=== PATIENT | male | born 1945 | race Caucasian/White ===

== ENCOUNTER 2018-11-26 03:39 | Inpatient (IN) | payer MEDICARE, OTHER ==
[2018-11-26] MEDS ORDERED: Morphine 4 MG/ML VIAL SLOW IVP PRN ×2 (05:22→05:49)
[2018-11-26] MEDS ORDERED: Ondansetron ODT 4 MG TAB SL PRN (05:23)
[2018-11-26] MEDS ORDERED: Ondansetron PF 4 MG/2 ML Vial IVP PRN (05:23)
[2018-11-26 05:24] VITALS: BMI 32.2
[2018-11-26] MEDS ORDERED: Dextrose 5 % And 0.9 % NaCl 1,000 ML IV SCH (05:30)
[2018-11-26] MEDS ORDERED: Lactated Ringer's 1,000 ML IV SCH ×2 (05:45→12:00)
[2018-11-26] MEDS ORDERED: HumaLOG 300 UNITS/3 ML VIAL SC PRN (06:13)
[2018-11-26] MEDS ORDERED: Dextrose 5% in Water 1,000 ML IV PRN (06:13)
[2018-11-26] MEDS ORDERED: hydrALAZINE 20 MG/ML VIAL SLOW IVP PRN (06:14)
--- NOTE | 2018-11-26 07:16 | HP ---
PRIMARY CARE PHYSICIAN: CODE STATUS: Full code. TIME OF EVALUATION: 6 a.m. CHIEF COMPLAINT: Abdominal pain. HISTORY OF PRESENT ILLNESS: This is a 73-year-old male patient with past medical history of diabetes, hypertension, and GERD, came to the hospital after having severe abdominal pain that started 2 days ago and radiating to the back with no clear triggers, no alleviating factors, associated with nausea and vomiting. It looks that the patient had some weight loss in the past few weeks. REVIEW OF SYSTEMS: CONSTITUTIONAL: The patient had no fever or chills. The patient has generalized weakness. RESPIRATORY: No cough, sputum production, or shortness of breath. CARDIOVASCULAR: No chest pain or palpitation. GASTROINTESTINAL: The patient has nausea and vomiting and severe abdominal pain radiating to the back. PROJECT SUPERINTENDENT: No dizziness, headache, or feeling lightheaded. GENITOURINARY: No burning on urination. EXTREMITIES: No leg swelling. All other systems were reviewed and negative except for the findings mentioned above. PAST MEDICAL HISTORY: As mentioned in the HPI. PAST SURGICAL HISTORY: The patient has cataracts with [id number] amputation, right knee replacement in 2012. FAMILY HISTORY: The patient has 2 sisters with breast cancer. PHYSICAL EXAMINATION: VITAL SIGNS: Blood pressure 191/81 with heart rate 84, respiratory rate was 20, temperature 97.8, pulse ox 94 %, weight 107 kg. GENERAL APPEARANCE: The patient is alert and oriented, in no acute distress. HEENT: Eyes, normal conjunctivae. Moist oral mucosa. Anicteric. No JVD. RESPIRATORY: Bilateral air entry. No rales. No wheezes. Symmetric expansion. CARDIOVASCULAR: Normal rate, regular rhythm. No murmurs. No gallop. No edema. ABDOMEN: Soft. Normal bowel sounds. The patient has abdominal tenderness noticed in the epigastric area. MUSCULOSKELETAL: Baseline range of motion and strength. No tenderness. SKIN: Warm and intact. No pallor. No rash. No redness. EXTREMITIES: Peripheral pulses are present. Capillary refill seems to intact. NEUROLOGIC: No evidence of any new focal weakness. Cranial nerves seems to be intact. PSYCH: The patient is in good mood. No anxiety. Optimal judgment. LABORATORY DATA: EKG was reviewed. The patient has atrial fibrillation with RBBB the labs were reviewed. The patient has white count 13.8, hemoglobin 13.7, hematocrit 42. BMP; the patient has BUN of 32, creatinine 2.0. Bilirubin was 2.4, AST 543, ALT 328, bilirubin direct 1.9. Urinalysis was negative. Lipase was 69,528. Amylase 3100. Blood cultures x2 were done. Magnesium 1.9. Beta-natriuretic peptide 198. Partial thromboplastin time 21, PT 10.9, troponin less than 0.017, lactic acid 1.7. Ultrasound of the abdomen was done, it was negative. The only finding was hepatic steatosis. Common bile duct was 4.[address] abdomen was done and showed acute pancreatitis. ASSESSMENT AND PLAN: The patient will be placed in the hospital with following medical problems. 1. Acute pancreatitis. Lipase was very elevated, also LFTs are high. Common bile duct is normal. GI has been consulted. We will follow recommendations. We will continue with hydration and pain management. The patient seems to be stable at this point. Symptoms are under control. 2. Hypertensive urgency. The patient presented with systolic blood pressure of 191, could be secondary to pain, symptoms are under control. Blood pressure is in control now. Might need some blood pressure medications p.r.n. for optimal control. 3. Leukocytosis, white count 13.8. This is likely secondary to pancreatitis. There is no bandemia. No evidence of sepsis at this point. 4. History of diabetes. We will place the patient on sliding scale for optimal control. 5. Hyperlipidemia. Reconcile home medications. Low-cholesterol diet is advised. 6. Deep venous thrombosis prophylaxis. Job ID: [id number]
[2018-11-26] MEDS: Enoxaparin Sodium 40 MG/0.4 ML SYRINGE SC SCH (09:06)
[2018-11-26] MEDS: Dextrose 50% Abboject 50 ML SYRINGE SLOW IVP PRN ×5 (11:07→21:04)
--- NOTE | 2018-11-26 11:47 | CON ---
DATE OF CONSULTATION: HISTORY OF PRESENT ILLNESS: This is a 73-year-old obese gentleman, who presented to [facility] with severe abdominal pain of about 2 days duration, eventually associated with some nausea and vomiting. A CT of abdomen showed evidence of peripancreatic inflammation consistent with acute pancreatitis. His lipase was 4421, he is in the MICU, reason for consultation. Nonsmoker. Chews recent tobacco. Drinks socially. He was evaluated by a stave grader here locally for cough, which was felt to be secondary to YAW. He does snore. It is unclear whether he has witnessed apnea. PAST MEDICAL HISTORY: Hypertension, diabetes, BPH, high cholesterol, and reflux. CHRONIC MEDICATION: 1. Amlodipine 5. 2. Actos 30. 3. Glipizide 5. 4. Metformin 1000 b.i.d. 5. Flomax 0.4. 6. Losartan . 7. Omeprazole 10. 8. Simvastatin 40. PAST MEDICAL HISTORY: Diabetes; hypertension; reflux; hyperlipidemia; chronic cough, improved. PAST SURGICAL HISTORY: Cataract, left BKA, shoulder trauma, right knee replacement. ALLERGIES: SULFA. SOCIAL AND FAMILY HISTORY: REVIEW OF SYSTEMS: Otherwise, 10-point negative. PHYSICAL EXAMINATION: GENERAL: In no distress. VITAL SIGNS: Temperature 98.9, saturations are 97, blood pressure 139/73, respiratory rate 18, and pulse 80. CHEST: Decreased breath sounds. No wheezing. CARDIAC: Normal S1 and S2. No gallops. ABDOMEN: No masses. LABORATORY DATA: LDH is 435, lipase 4421. In addition, a chest x-ray was done, which did not show any acute infiltrates. His additional lab was otherwise unremarkable. IMPRESSION: 1. Acute pancreatitis. 2. Diabetes. 3. Hypertension. 4. Probable sleep apnea, morbid obesity. PLAN: Await input from GI. Pulmonary will follow while in the MICU. Discussed with his . He may benefit from an outpatient sleep study. Continue PT supportive care. We will follow. Consultation note, 70 minutes, 50% direct patient care. Job ID: [id number]
[2018-11-26] MEDS ORDERED: Dextrose 5%-Lactated Ringers 1,000 ML IV SCH ×3 (12:00→16:00)
[2018-11-26 14:37] LABS: #Lymphocytes 0.5 thou/uL (1.20-3.40); #Monocytes 0.6 thou/uL (0.11-0.59); #Neutrophils 9.7 thou/uL (1.40-6.50); %Eosinophils 0.1 % (0.0-10.0); %Lymphocytes 4.5 % (21.0-51.0); %Monocytes 5.4 % (0.0-10.0); Hemoglobin 12.3 g/dL (14.0-18.0); Mean Corpuscular Hemoglobin 32.3 pg (27.0-31.0); Mean Corpuscular Volume 97.9 fL (78.0-98.0); Mean Platelet Volume 9.5 fL (7.4-10.4); Platelet Count 146 thou/uL (130-400); RBC Distribution Width 12.1 % (11.5-14.5); White Blood Cell (WBC) Count 10.7 thou/uL (4.8-10.8)
--- NOTE | 2018-11-26 14:47 | CON ---
DATE OF CONSULTATION: 11/26/2018 CHIEF COMPLAINT: Abdominal pain. HISTORY OF PRESENT ILLNESS: Mr. Roa is a 73-year-old man, who had onset of aching epigastric pain that radiates through to his back on Monday night. The pain at that point was postprandial and relatively mild and lasted for minutes to a couple of hours and improved with Rolaids. The next day, Monday, he had recurrence of the pain and again, he took Rolaids and the pain improved and then returned again later in the day after eating. He took some Mylanta with some improvement. The next morning, yesterday morning, his pain was much better. He went to [place] and then in the afternoon again, the pain started again after eating and at this time, it was more severe. He drinks Mylanta and went to sleep on the couch and then woke up a few hours later with much worse pain and ultimately, he went on to the emergency room for further care. He vomited once at home and then again in the emergency room. He has had no hematemesis. No blood in the stool. No diarrhea or constipation. He has gained weight recently. He had an EGD and colonoscopy I believe at [facility] around 2 to [address] Tinajero. The family reports he had some changes of acid reflux, but otherwise the scopes were okay. He also had an ultrasound at that time that was reportedly unremarkable. He does get periodic blood tests done and does not recall having been told his liver tests were elevated before. He only drinks 1 or 2 beers once every month or 6 weeks. He has been treated for hypertriglyceridemia. PAST MEDICAL HISTORY: Hypertriglyceridemia, diabetes mellitus, gastroesophageal reflux disease, and hypertension. PAST SURGICAL HISTORY: Cataract surgery, left BKA, right knee replacement. He has had no prior abdominal surgeries. He has had a recent EGD and a colonoscopy. FAMILY HISTORY: Negative for GI malignancy or liver disease. SOCIAL HISTORY: Maybe 1 or 2 beers once every month to a month and a half. No smoking. No drugs. ALLERGIES: SULFA. MEDICATIONS: Prior to admission include; 1. Omeprazole 20 mg daily. 2. Metformin. 3. Pioglitazone. 4. Vitamin D. 5. Losartan. 6. Simvastatin. 7. Fenofibrate. 8. B12. 9. Tamsulosin. 10. Amlodipine. 11. Cetirizine. 12. Glipizide. REVIEW OF SYSTEMS: Negative x10 systems reviewed except as stated in the history of present illness. PHYSICAL EXAMINATION: VITAL SIGNS: Temperature is 97.8, blood pressure 124/69, and pulse 71. GENERAL: He is in no acute distress. He is alert and oriented x3. HEENT: Eyes have slight scleral icterus. Oropharynx is clear without lesions. NECK: No cervical or supraclavicular lymphadenopathy. LUNGS: Clear to auscultation bilaterally. HEART: Regular rate and rhythm without murmur. ABDOMEN: Soft. Minimal tenderness now to palpation without guarding. Bowel sounds are present. EXTREMITIES: No lower extremity edema. He does report that his pain is resolved at this time. DIAGNOSTIC DATA: Labs from the outside emergency room include white blood cell count 13.8, hemoglobin 13.7. Creatinine 2.07, bilirubin 2.4, AST 543, ALT 328, and alkaline phosphatase 101. He had ultrasound of the abdomen in the outside ER that showed fatty liver and no gallstones and a common bile duct of 4.[address] He [address] a [address] scan of the abdomen and pelvis as well that showed peripancreatic inflammatory changes and fatty infiltration of the liver without biliary tree dilatation. Labs today, lipase is 4421, triglycerides 55. His lipase at the outside ER was in the 60,000 range. However, I do not have a listed upper limit of normal for that lab. IMPRESSION: 1. Acute gallstone pancreatitis. He presents with significantly elevated liver tests with a bilirubin of 2.4. Ultrasound shows no stones in the gallbladder. His common bile duct is not dilated. He has no prior history of elevated liver tests. However, he does have fatty liver by ultrasound. He has a history of hypertriglyceridemia and is on simvastatin and fenofibrate. However, his triglycerides with labs drawn this morning were only 55. His lipase is trending down. He does have secondary organ dysfunction secondary to the pancreatitis with an elevated creatinine of 2. 2. Acute renal failure. 3. Fatty liver disease. 4. Diabetes mellitus. RECOMMENDATIONS: 1. IV rehydration with lactated Ringer's. 2. Follow trend of the liver tests. 3. MRCP today. 4. If the MRCP suggest choledocholithiasis or the liver tests continue to increase, then he will likely require ERCP. If the liver tests and MRI do not suggest persistent choledocholithiasis, then cholecystectomy will be indicated as a next step. There is no history of significant alcohol use to indicate alternative etiology. He has no evidence of chronic liver disease prior to this based on history to indicate that he has acute pancreatitis and chronic liver disease that is just decompensating. This would be a much less likely scenario at this point. Job ID: [id number]
[2018-11-26 14:53] LABS: ALT (SGPT) 279 U/L (8-55); AST (SGOT) 252 U/L (5-34); Albumin 3.7 g/dL (3.4-4.8); Alkaline Phosphatase 85 U/L (40-150); Anion Gap 13 mmol/L (10-20); BUN (Urea Nitrogen) 34 mg/dL (8.4-25.7); Bilirubin, Total 3.7 mg/dL (0.2-1.2); Calc. Creatinine Clearance 50 mL/min (70-130); Calcium 9.2 mg/dL (7.8-10.44); Carbon Dioxide 20 mmol/L (23-31); Chloride 107 mmol/L (98-107); Estimated GFR-MDRD 32; Globulin 3.3 g/dL (2.4-3.5); Potassium 4.1 mmol/L (3.5-5.1); Sodium 136 mmol/L (136-145)
[2018-11-26 14:55] LABS: Glucose 54 mg/dL (83-110)
--- NOTE | 2018-11-26 15:53 | PDOC.EVN ---
Event Note - Event Note Event Note: Patient admitted earlier this AM with pancreatitis. Seen and examined around noon. Abdominal pain improved, still a bit sore. No N/V. Blood sugars dropped this AM and NPO so starting fluids with dextrose. GI consult pending.
[2018-11-26] MEDS: Dextrose 10% in Water 1,000 ML IV SCH (17:50)
--- NOTE | 2018-11-26 19:26 | MRI ---
MRI ABDOMEN WITHOUT CONTRAST: Date: 11/26/18 HISTORY: Pancreatitis. FINDINGS: The liver demonstrates significant loss on the [id number] images consistent with diffuse fatty infi ltration. No intra or extrahepatic biliary ductal dilatation is seen. No pancreatic ductal dilatation is identified. There are probable tiny calculi in the gallbladder. No calculi seen in the common nedra e duct. There is a small amount of fluid in the anterior peroneal space. No abnormally loculated flui d collections are seen to suggest pseudocyst formation. There are cysts in the right kidney, largest measuring 17 mm. The spleen, adrenal glands, and left ki dney are normal. A small duodenal diverticulum is seen arising from the second portion of the duodenu m. There is suggestion of a mass at the pyloric antrum. No aneurysmal dilatation of the abdominal aorta seen. There are degenerative changes in the spine. No lymphadenopathy or ascites identified. IMPRESSION: 1. Fatty liver. 2. Probable cholelithiasis. 3. No evidence of choledocholithiasis or biliary obstruction. 4. Findings consistent with pancreatitis. 5. Right renal cysts. 6. Small duodenal diverticulum. 7. Probable mass in the pyloric antrum. Endoscopy would be helpful. POS: [facility]
[2018-11-27] MEDS: Dextrose 50% Abboject 50 ML SYRINGE SLOW IVP PRN ×4 (00:12→09:15)
[2018-11-27] MEDS: Acetaminophen 325 MG TAB PO PRN ×2 (03:59→20:04)
[2018-11-27 04:15] LABS: #Lymphocytes 0.9 thou/uL (1.20-3.40); #Monocytes 0.7 thou/uL (0.11-0.59); #Neutrophils 8.9 thou/uL (1.40-6.50); %Basophils 0.2 % (0.0-1.0); %Eosinophils 0.2 % (0.0-10.0); %Lymphocytes 8.3 % (21.0-51.0); %Monocytes 6.6 % (0.0-10.0); %Neutrophils 84.6 % (42.0-75.0); Hemoglobin 11.9 g/dL (14.0-18.0); Mean Corpuscular HGB CONC 32.7 g/dL (32.0-36.0); Mean Corpuscular Hemoglobin 32.2 pg (27.0-31.0); Mean Corpuscular Volume 98.4 fL (78.0-98.0); Mean Platelet Volume 9.9 fL (7.4-10.4); Platelet Count 156 thou/uL (130-400); RBC Distribution Width 12.3 % (11.5-14.5); Red Blood Cell (RBC) Count 3.68 mill/uL (4.70-6.10); White Blood Cell (WBC) Count 10.5 thou/uL (4.8-10.8)
[2018-11-27 04:36] LABS: Anion Gap 13 mmol/L (10-20); BUN (Urea Nitrogen) 27 mg/dL (8.4-25.7); Calc. Creatinine Clearance 56 mL/min (70-130); Calcium 9.3 mg/dL (7.8-10.44); Carbon Dioxide 17 mmol/L (23-31); Chloride 106 mmol/L (98-107); Estimated GFR-MDRD 36; Potassium 3.6 mmol/L (3.5-5.1); Sodium 132 mmol/L (136-145)
[2018-11-27 04:40] LABS: Glucose 40 mg/dL (83-110)
[2018-11-27] MEDS: Dextrose 10% in Water 1,000 ML IV SCH (06:05)
--- NOTE | 2018-11-27 09:06 | RAD ---
CHEST 1 VIEW: HISTORY: Cough. COMPARISON: None. FINDINGS: Atherosclerosis of the aorta. Diminished lung volumes. Pleural and parenchymal changes of the lung bases. No pneumothorax. IMPRESSION: 1. Atherosclerosis. 2. Diminished lung volumes, likely due to poor inspiratory effort. 3. Patchy interstitial opacities in the lung bases likely representing atelectasis. Small bilateral effusions may be present. POS: [facility]
--- NOTE | 2018-11-27 09:20 | PRG ---
DATE OF SERVICE: 11/27/2018 SUBJECTIVE: This morning, awake, alert, and responsive, in no distress. Having severe hypoglycemic episodes, probably from the glipizide. He was taking 10 mg twice a day. OBJECTIVE: VITAL SIGNS: His temperature 98, blood pressure 140/71, saturations are 100% on room air, respiratory rate 18. CHEST: Decreased breath sounds. No wheezing. CARDIAC: Normal S1, S2. No gallops. ABDOMEN: No masses. IMPRESSION: 1. Severe pancreatitis. 2.hypoglycemic. 3. Diabetes. 4. Renal failure. 5. Small pleural effusion. 6. Left foot imbalance. 7. Gallstones. PLAN: Await input from GI. Hopefully, we can start him on a liquid diet. I agree with D10. Probably needs intramuscular glucagon 1 dose. We will follow. Job ID: [id number] MTDD
[2018-11-27] MEDS: Enoxaparin Sodium 40 MG/0.4 ML SYRINGE SC SCH (09:23)
--- NOTE | 2018-11-27 09:58 | PDOC.PN ---
- Subjective Encounter Start Date: 11/27/18 Encounter Start Time: 11:45 Subjective: Patient cold this AM. Blood sugar keeps dropping. Having CVL placed -: currently to run D20W. Abdominal pain resolved, just a little sore, and -: feels hungry. - Objective Resuscitation Status - Order Detail: 11/26/18 05:48 Resuscitation Status Routine Resuscitation Status: FULL: Full Resuscitation MAR Reviewed: Yes Vital Signs & Weight: Vital Signs (12 hours) Temp 11/27/18 07:16 98.0 F 11/27/18 03:55 100.3 F H 11/27/18 00:00 101.8 F H Weight Weight 244 lb 6.4 oz Most Recent Monitor Data Heart Rate from ECG 52 NIBP 143/71 NIBP BP-Mean 95 Respiration from ECG 17 SpO2 99 I&O: 11/26/18 11/27/18 11/28/18 06:59 06:59 06:59 Intake Total 450 3190 Output Total 210 1710 Balance 240 1480 Result Diagrams: 11/27/18 03:46 11/27/18 03:46 Additional Labs: Accuchecks 11/27/18 11/27/18 11/27/18 08:54 06:56 05:35 POC Glucose 45 L* 141 H 50 L* 11/27/18 11/27/18 11/26/18 04:00 01:58 23:58 POC Glucose 43 L* 80 45 L* 11/26/18 11/26/18 11/26/18 21:56 20:52 19:36 POC Glucose 96 41 L* 116 H 11/26/18 11/26/18 11/26/18 19:17 17:59 17:31 POC Glucose 43 L* 103 45 L* 11/26/18 11/26/18 11/26/18 15:35 14:59 11:41 POC Glucose 106 42 L* 119 H 11/26/18 11/26/18 11:04 06:52 POC Glucose 46 L* 96 Phys Exam - Physical Examination Constitutional: NAD HEENT: moist MMs Respiratory: no wheezing, no rales, no rhonchi Cardiovascular: RRR, no significant murmur Gastrointestinal: soft, no distention, positive bowel sounds mild TTP IVIS Neurological: non-focal Psychiatric: normal affect, A&O x 3 Dx/Plan (1) Acute pancreatitis Code(s): K85.90 - ACUTE PANCREATITIS WITHOUT NECROSIS OR INFECTION, UNSP Status: Acute Qualifiers: Pancreatitis type: biliary Comment: likely gallstone induced vs. glipizide, no obstruction on MRCP though possibly pyloric mass, Dr. Mckeon following (2) Hypoglycemia Code(s): E16.2 - HYPOGLYCEMIA, UNSPECIFIED Status: Acute Comment: Likely due to acute illness, almost out of D50 amps, will need to place CVL to run D20W. No known glipizide overdose, but will try Octreotide. ?Sepsis as source? (3) Acute renal failure (ARF) Status: Acute Comment: improving with IV fluids (4) Diabetes mellitus type 2 in obese Code(s): E11.69 - TYPE 2 DIABETES MELLITUS WITH OTHER SPECIFIED COMPLICATION; E66.9 - OBESITY, UNSPECIFIED Status: Chronic (5) HTN (hypertension) Code(s): I10 - ESSENTIAL (PRIMARY) HYPERTENSION Status: Chronic (6) Hyperlipidemia Code(s): E78.5 - HYPERLIPIDEMIA, UNSPECIFIED Status: Chronic Comment: controlled (7) Fatty liver disease, nonalcoholic Status: Chronic - Plan cont current plan of care, PT/OT, DVT proph w/lovenox Case discussed with Dr. Mckeon. Symptomatically better but LFTs worse, -: persistent severe hypoglycemia, concern for underlying sepsis/biliary -: infection. Blood and urine cultures ordered and Rocephin started. * . - Discharge Day Encounter end time: 12:00
[2018-11-27 10:05] LABS: ALT (SGPT) 218 U/L (8-55); AST (SGOT) 151 U/L (5-34); Albumin 3.7 g/dL (3.4-4.8); Alkaline Phosphatase 97 U/L (40-150); Bilirubin, Direct 3.7 mg/dL (0.1-0.3); Bilirubin, Total 4.5 mg/dL (0.2-1.2); Protein, Total 7.2 g/dL (5.8-8.1)
[2018-11-27 10:25] LABS: INR-International Normal Ratio 1.2; Prothrombin Time 15.5 SEC (12.0-14.7)
[2018-11-27] MEDS ORDERED: Octreotide Acetate 50 MCG/ML AMP SC SCH (12:00)
--- NOTE | 2018-11-27 12:08 | PDOC.EVN ---
Event Note - Event Note Event Note: Called for CVC placement d/t need for d20 2/2 recurrent hypoglycemia. Obtained written and verbal consent from patient and daughter/. Sterile technique observed. CVC placed using seldinger technique on second attempt using ultrasound guidance. Wire visualized in vein prior to dilation. Line sutured in place. + lung sliding on right after placement. CXR pending. EBL [address] Amaya. Consider trial of octreotide if there is a component of sulfonylurea toxicity. Formal note to follow. I was present for the entirety of the procedure.
[2018-11-27] MEDS: Sterile Water Injection 714 ML in Dextrose 70% in Water 286 ML IV SCH ×2 (12:16→23:23)
--- NOTE | 2018-11-27 12:37 | RAD ---
AP view chest. HISTORY: Central line placement. AP view chest obtained on 11/27/2018. Comparison made to previous exam from 11/27/2018. There is been placement of a right jugular central line distal tip overlying the SVC. Mild cardiomegaly seen. Areas of patchy density seen in both lung bases compatible with bibasilar atelectasis. No evidence of effusion seen. IMPRESSION: No evidence of postprocedure hematoma or pneumothorax.
--- NOTE | 2018-11-27 12:47 | PDOC.CNTRL ---
Central Line Procedure Note - Procedure Date: 11/27/18 Time: 11:55 - Description Procedure in Details: INDICATION: Persistent hypoglycemia requiring D20 PROCEDURE SNAILER: Dinesh Silva (attending) ATTENDING PHYSICIAN: Dr. Koo In Attendance CONSENT: Consent was obtained from patient prior to the procedure. Indications, risks, and benefits were explained at length. PROCEDURE SUMMARY: A time out was performed. My hands were washed immediately prior to the procedure. I wore a surgical cap, mask with protective eyewear, full gown and sterile gloves throughout the procedure. The patient was placed in Trendelenburg position. RIGHT neck/chest region was prepped using chlorhexidine scrub and draped in sterile fashion using a full drape and sterile probe cover employed. The medial and lateral heads of the sternocleidomastoid muscle were identified as was the carotid pulse. The Internal Jugular vein was identified using the ultrasound. Anesthesia was achieved over the vein using 1% lidocaine. Using real-time out of plane guidance, the introducer needle was inserted into the Internal Jugular vein under direct ultrasound visualization. Venous blood was withdrawn. The syringe was removed and a guidewire was advanced into the introducer needle. The guidewire was visualized in the Internal Jugular Vein by ultrasound. A small incision was made at the skin surface with a scalpel and the introducer needle was exchanged for a dilator over the guidewire. After appropriate dilation was obtained, the dilator was exchanged over the wire for a triple lumen central venous catheter. The wire was removed and the catheter was sutured in place at 15 cm. A biopatch was placed over the catheter at the insertion site, catheter sutured in place and tegeterm layed over top. The patient tolerated the procedure without any hemodynamic compromise. At time of procedure completion, all ports aspirated and flushed properly. Post-procedure chest x-ray is pending at this time. Ultrasound verified lung sliding. Estimated blood loss is 2ml. Addendum - Attending - Attending Attestation Date/Time: 11/27/18 1325 Present and gowned/glove for the procedure.
[2018-11-27] MEDS ORDERED: cefTRIAXone Sodium 2,000 MG in Syringe 0 ML IVPB SCH (14:15)
--- NOTE | 2018-11-27 14:43 | PRG ---
DATE OF SERVICE: 11/27/2018 SUBJECTIVE: Mr. Roa has chills this afternoon. He had a central line in place. His blood pressure has been running higher. He has no abdominal pain and complains of hunger and wants eat. OBJECTIVE: VITAL SIGNS: Temperature midnight last night 101.8, current temperature 98.2, pulse 71, blood pressure this afternoon was 146/63. He did have a higher blood pressure measured this afternoon. However, this is when he was having chills and his muscles were tense. This measured at 183/112. GENERAL: He is awake and alert and oriented x3. HEENT: His eyes have scleral icterus. He is jaundiced. His oropharynx is clear without lesions. NECK: No cervical or supraclavicular lymphadenopathy. LUNGS: Clear to auscultation bilaterally. HEART: Regular rate and rhythm without murmur. ABDOMEN: Soft, nontender, nondistended. Bowel sounds are present. EXTREMITIES: No lower extremity edema. LABORATORY DATA: His blood glucose has been running repeatedly down to the 40s. Bilirubin today bumped up to 4.5, AST 151, ALT 218, alkaline phosphatase 97, and lipase 1312. IMPRESSION: 1. Acute severe pancreatitis with acute renal failure with creatinine elevated at 2.06 yesterday, improved somewhat to 1.83 today. He is completely pain free and asking for food. His blood sugars are running low, likely related to his diabetes medicines still on board despite no oral intake for the last couple of days. The cause of the acute pancreatitis is suspected to be biliary. His pain is resolved and his liver tests are increasing. MRCP shows suspected stones in the gallbladder. However, there is no evidence of choledocholithiasis and the bile ducts are not dilated. We will hold off ERCP at this point. 2. Abnormal liver function test. He has more of a hepatocellular injury pattern rather than cholestatic pattern to his liver tests. Again, question of choledocholithiasis is raised versus some other cause of this acute elevation of his liver tests. Given the concomitant pancreatitis, choledocholithiasis would make the most sense, however, again the MRI shows no evidence of choledocholithiasis, no bile duct dilation and his alkaline phosphatase is normal. Medication side effects or sepsis could be contributing to this as well. 3. Chills this afternoon and fevers last night. His white blood cell count is normal. We will send blood cultures and urine culture now. RECOMMENDATIONS: 1. Culture of the blood and urine. 2. We will initiate General Surgery consultation. He does have gallstones in the gallbladder by MRI and acute pancreatitis with elevated liver tests. He will likely ultimately require cholecystectomy. Intraoperative cholangiogram could be performed at the same time. 3. We will need to continue to follow the trend of the liver tests. 4. Await results of the blood and urine cultures. Job ID: [id number]
[2018-11-27] MEDS: cefTRIAXone\\ROCEPHIN 2 GM in Sodium Chloride 0.9% 100 ML IVPB SCH (15:23)
[2018-11-27] MEDS: Octreotide Acetate 100 MCG/ML VIAL SC SCH ×2 (17:38→23:23)
[2018-11-28] MEDS: Octreotide Acetate 100 MCG/ML VIAL SC SCH ×4 (05:30→23:48)
[2018-11-28 05:55] LABS: #Eosinphils 0.1 thou/uL (0.0-0.7); #Lymphocytes 0.7 thou/uL (1.20-3.40); #Monocytes 0.6 thou/uL (0.11-0.59); #Neutrophils 7.4 thou/uL (1.40-6.50); %Basophils 0.3 % (0.0-1.0); %Eosinophils 0.7 % (0.0-10.0); %Lymphocytes 7.4 % (21.0-51.0); %Monocytes 7.2 % (0.0-10.0); %Neutrophils 84.4 % (42.0-75.0); Mean Corpuscular HGB CONC 32.7 g/dL (32.0-36.0); Mean Corpuscular Hemoglobin 31.8 pg (27.0-31.0); Mean Corpuscular Volume 97.2 fL (78.0-98.0); Mean Platelet Volume 10.4 fL (7.4-10.4); Platelet Count 136 thou/uL (130-400); Red Blood Cell (RBC) Count 3.77 mill/uL (4.70-6.10); White Blood Cell (WBC) Count 8.8 thou/uL (4.8-10.8)
[2018-11-28 06:10] LABS: ALT (SGPT) 149 U/L (8-55); AST (SGOT) 62 U/L (5-34); Albumin 3.5 g/dL (3.4-4.8); Alkaline Phosphatase 142 U/L (40-150); Anion Gap 10 mmol/L (10-20); BUN (Urea Nitrogen) 20 mg/dL (8.4-25.7); Bilirubin, Total 4.6 mg/dL (0.2-1.2); Calc. Creatinine Clearance 56 mL/min (70-130); Calcium 9.4 mg/dL (7.8-10.44); Carbon Dioxide 22 mmol/L (23-31); Chloride 103 mmol/L (98-107); Estimated GFR-MDRD 36; Globulin 3.5 g/dL (2.4-3.5); Glucose 297 mg/dL (83-110); Lipase 282 U/L (8-78); Potassium 3.9 mmol/L (3.5-5.1); Sodium 131 mmol/L (136-145)
[2018-11-28] MEDS ORDERED: Sterile Water Injection 714 ML in Dextrose 70% in Water 286 ML IV SCH (08:30)
[2018-11-28] MEDS: Sterile Water Injection 714 ML in Dextrose 70% in Water 286 ML IV SCH (09:35)
[2018-11-28] MEDS: Enoxaparin Sodium 40 MG/0.4 ML SYRINGE SC SCH ×2 (09:56→16:18)
--- NOTE | 2018-11-28 10:07 | PRG ---
DATE OF SERVICE: 11/28/2018 SUBJECTIVE: Hugh Roa is better, less nausea, less vomiting. Blood sugars in 280s. OBJECTIVE: VITAL SIGNS: Temperature 97, blood pressure 140/63, respirations 18, pulse 80. CHEST: Decreased breath sounds, minimal rhonchi. CARDIAC: Normal S1 and S2. No gallops. ABDOMEN: No masses. LABORATORY DATA: Sodium 131, creatinine 1.83, glucose 288. Lipase down to 282. Liver function; ALT is 149. IMPRESSION: 1. Severe pancreatitis. 2. Hypoglycemia secondary to intake of long-acting Glucotrol 20 mg a day. 3. Gallstones. 4. Obesity. PLAN: Decrease his D20 to 30 an hour. If blood sugars remain elevated all day today, may switch back to D5. Surgery is consulted regarding cholecystectomy. Pulmonary will follow while in the MICU. Job ID: [id number]
--- NOTE | 2018-11-28 12:13 | PDOC.PN ---
- Subjective Encounter Start Date: 11/28/18 Encounter Start Time: 12:20 Subjective: Patient feeling better. Tolerating oral fluids. Blood sugars now running -: high. Fever last night, now normal. No N/V. - Objective Resuscitation Status - Order Detail: 11/26/18 05:48 Resuscitation Status Routine Resuscitation Status: FULL: Full Resuscitation MAR Reviewed: Yes Vital Signs & Weight: Vital Signs (12 hours) Temp Pulse Ox 11/28/18 11:26 98.5 F 11/28/18 08:00 99 11/28/18 07:37 97.9 F 11/28/18 04:00 98.8 F Weight Weight 244 lb 6.4 oz Most Recent Monitor Data Heart Rate from ECG 54 NIBP 151/55 NIBP BP-Mean 87 Respiration from ECG 25 SpO2 95 I&O: 11/27/18 11/28/18 11/29/18 06:59 06:59 06:59 Intake Total 3190 2044 Output Total 1710 2800 300 Balance 4870 -786 300 Result Diagrams: 11/28/18 05:37 11/28/18 05:37 Additional Labs: Accuchecks 11/28/18 11/28/18 11/28/18 12:02 11:00 10:18 POC Glucose 260 H 277 H 334 H 11/28/18 11/28/18 11/28/18 08:59 08:16 07:00 POC Glucose 321 H 288 H 262 H 11/28/18 11/28/18 11/28/18 06:05 05:28 04:05 POC Glucose 280 H 289 H 261 H 11/28/18 11/28/18 11/28/18 03:14 02:06 01:09 POC Glucose 266 H 251 H 263 H 11/28/18 11/27/18 11/27/18 00:05 23:04 22:03 POC Glucose 266 H 288 H 309 H 11/27/18 11/27/18 11/27/18 21:04 19:44 18:21 POC Glucose 302 H 288 H 226 H 11/27/18 11/27/18 11/27/18 17:02 16:04 14:58 POC Glucose 176 H 199 H 148 H 11/27/18 11/27/18 14:02 12:55 POC Glucose 104 51 L* Phys Exam - Physical Examination Constitutional: NAD HEENT: moist MMs Respiratory: no wheezing, no rales, no rhonchi Cardiovascular: RRR, no significant murmur Gastrointestinal: soft, non-tender, positive bowel sounds Neurological: non-focal, moves all 4 limbs Psychiatric: normal affect, A&O x 3 Dx/Plan (1) Acute pancreatitis Code(s): K85.90 - ACUTE PANCREATITIS WITHOUT NECROSIS OR INFECTION, UNSP Status: Acute Qualifiers: Pancreatitis type: biliary Comment: likely gallstone induced vs. glipizide, no obstruction on MRCP though possibly pyloric mass, Dr. Mckeon following (2) Hypoglycemia Code(s): E16.2 - HYPOGLYCEMIA, UNSPECIFIED Status: Acute Comment: Likely due to acute illness and glipizide, almost out of D50 amps, improved with D20 via central line with octreotide, now can transition back to D5 (3) Acute renal failure (ARF) Status: Acute Comment: improving with IV fluids (4) Diabetes mellitus type 2 in obese Code(s): E11.69 - TYPE 2 DIABETES MELLITUS WITH OTHER SPECIFIED COMPLICATION; E66.9 - OBESITY, UNSPECIFIED Status: Chronic (5) HTN (hypertension) Code(s): I10 - ESSENTIAL (PRIMARY) HYPERTENSION Status: Chronic (6) Hyperlipidemia Code(s): E78.5 - HYPERLIPIDEMIA, UNSPECIFIED Status: Chronic Comment: controlled (7) Fatty liver disease, nonalcoholic Status: Chronic (8) Elevated LFTs Code(s): R94.5 - ABNORMAL RESULTS OF LIVER FUNCTION STUDIES Status: Acute Comment: concern for possible infection vs. underlying cirrhosis, no biliary obstruction on MRCP, Rocephin started 11/27/18 after blood cultures, fever 102 night, normal WBC - Plan cont current plan of care, PT/OT, DVT proph w/lovenox likely cholecystectomy prior to discharge * . - Discharge Day Encounter end time: 12:30
[2018-11-28] MEDS: Dextrose 5 % And 0.9 % NaCl 1,000 ML IV SCH (13:00)
--- NOTE | 2018-11-28 15:33 | PRG ---
DATE OF SERVICE: 11/28/2018 SUBJECTIVE: Mr. Roa is feeling better. His mental status is much improved, now that his blood sugars are maintaining appropriate levels. He has no abdominal pain. He is tolerating clear liquids well. He did spike fever last night after the blood cultures were obtained and after initiated antibiotics. The blood cultures were obtained prior to the antibiotics. No nausea or vomiting. OBJECTIVE: VITAL SIGNS: Maximum temperature last night was 102.4. Current temperature 98.5. Blood pressure 152/58 and pulse 50. GENERAL: He is in no acute distress. He is alert and oriented x3. He is jaundiced. LUNGS: Clear to auscultation bilaterally. HEART: Regular rate and rhythm without murmur. ABDOMEN: Soft, nontender, nondistended. Bowel sounds are present. EXTREMITIES: No lower extremity edema. LABORATORY DATA: White blood cell count 8.8, hemoglobin 12.0, platelets 136. INR 1.2, creatinine 1.83, bilirubin 4.6, AST 62, ALT 149, alkaline phosphatase 142, lipase is down to 282. IMPRESSION: 1. Acute pancreatitis. I believe this is most likely gallstone pancreatitis. MRI suggests small stones in the gallbladder. The liver tests have been elevated with more of a hepatocellular injury pattern rather than a cholestatic pattern. There is no significant alcohol use and his triglycerides are normal. 2. Abnormal liver function tests. The MRCP does not show biliary dilation or choledocholithiasis. He had fatty liver noted by ultrasound. His platelets are running low. I suspect he could have chronic underlying liver disease or even cirrhosis that may have decompensated with the acute pancreatitis, and the liver tests might be more related to that rather than ongoing choledocholithiasis. However, it still may be that the liver tests are elevated for another reason, such as sepsis or infection or still choledocholithiasis. The ALT is greater than the AST which would suggest against a cirrhotic pattern. 3. Acute renal failure. His creatinine is improved from 2.06 to 1.83 and is stable from yesterday. 4. Hypoglycemia is improving. 5. Fever. He spiked a fever to 102.4 last night. Blood cultures were drawn yesterday afternoon prior to starting ceftriaxone. His white blood cell count remains normal. I will continue to follow the blood cultures, however, these have been negative for 24 hours now. RECOMMENDATIONS: 1. Recheck liver tests in the morning. 2. As long as he is clinically improving, then ultimately I think he will require cholecystectomy with intraoperative cholangiogram prior to discharge. In the meantime, I will continue to evaluate for other causes of the elevated liver tests. We will send labs for viral hepatitis panel, however, I would expect this to be negative. Job ID: [id number]
[2018-11-28 16:03] LABS: Iron 26 ug/dL (65-175); Iron Binding Capacity, Total 260 mcg/dL (261-462)
[2018-11-28] MEDS: cefTRIAXone\\ROCEPHIN 2 GM in Sodium Chloride 0.9% 100 ML IVPB SCH (16:16)
[2018-11-28 16:24] LABS: HBCM Index 0.06 S/CO (0-0.79); HBSAg Index 0.31 S/CO (0-0.99); Hep A IgM AB Non-Reactive (NonReactive); Hep A IgM S/CO 0.14 S/CO (0-0.79); Hep B Surf Ag Non-Reactive S/CO (NonReactive); Hep C IgG Ab Non-Reactive (NonReactive); Hep C Index 0.08 S/CO (0-0.79); Hepatitis B Core IgM Abs Non-Reactive (NonReactive)
[2018-11-29] MEDS: Octreotide Acetate 100 MCG/ML VIAL SC SCH ×4 (05:47→23:57)
--- NOTE | 2018-11-29 09:02 | PRG ---
DATE OF SERVICE: 11/29/2018 SUBJECTIVE: This morning, he is doing better. Less nausea and less vomiting. I started on a diet. OBJECTIVE: VITAL SIGNS: His blood pressure is 148/60, temperature 98, respirations 18, saturations on room air. CHEST: Decreased breath sounds. No wheezing. CARDIAC: Normal S1 and S2. No gallops. ABDOMEN: Soft. LABORATORY DATA: Glucose 149. IMPRESSION AND PLAN: 1. Pancreatitis, improved. 2. Hyperglycemia, pretty much resolved. 3. Gallbladder disease. 4. Await input from Surgery. 5. Pulmonary will follow on the MICU. Job ID: [id number]
[2018-11-29] MEDS: Dextrose 5 % And 0.9 % NaCl 1,000 ML IV SCH (09:32)
[2018-11-29] MEDS: Enoxaparin Sodium 40 MG/0.4 ML SYRINGE SC SCH (09:32)
[2018-11-29 09:37] LABS: #Eosinphils 0.2 thou/uL (0.0-0.7); #Lymphocytes 0.8 thou/uL (1.20-3.40); #Monocytes 0.7 thou/uL (0.11-0.59); #Neutrophils 6.8 thou/uL (1.40-6.50); %Basophils 0.1 % (0.0-1.0); %Eosinophils 2.5 % (0.0-10.0); %Lymphocytes 9.1 % (21.0-51.0); %Monocytes 7.9 % (0.0-10.0); %Neutrophils 80.4 % (42.0-75.0); Hemoglobin 11.5 g/dL (14.0-18.0); Mean Corpuscular HGB CONC 33.8 g/dL (32.0-36.0); Mean Corpuscular Hemoglobin 32.6 pg (27.0-31.0); Mean Corpuscular Volume 96.4 fL (78.0-98.0); Mean Platelet Volume 11.4 fL (7.4-10.4); Platelet Count 169 thou/uL (130-400); Red Blood Cell (RBC) Count 3.54 mill/uL (4.70-6.10); White Blood Cell (WBC) Count 8.5 thou/uL (4.8-10.8)
[2018-11-29 09:59] LABS: ALT (SGPT) 88 U/L (8-55); AST (SGOT) 27 U/L (5-34); Albumin 3.2 g/dL (3.4-4.8); Alkaline Phosphatase 151 U/L (40-150); Anion Gap 13 mmol/L (10-20); BUN (Urea Nitrogen) 22 mg/dL (8.4-25.7); Bilirubin, Total 4.1 mg/dL (0.2-1.2); Calc. Creatinine Clearance 66 mL/min (70-130); Calcium 9.1 mg/dL (7.8-10.44); Carbon Dioxide 22 mmol/L (23-31); Chloride 102 mmol/L (98-107); Estimated GFR-MDRD 44; Globulin 3.6 g/dL (2.4-3.5); Glucose 283 mg/dL (83-110); Potassium 3.9 mmol/L (3.5-5.1); Protein, Total 6.8 g/dL (5.8-8.1); Sodium 133 mmol/L (136-145)
--- NOTE | 2018-11-29 13:49 | PDOC.PN ---
- Subjective Encounter Start Date: 11/29/18 Encounter Start Time: 12:00 Subjective: feels better, no abd pain or nausea -: has tolerated fat free diet, is sitting in chair -: and daughter at bedside - Objective Resuscitation Status - Order Detail: 11/26/18 05:48 Resuscitation Status Routine Resuscitation Status: FULL: Full Resuscitation MAR Reviewed: Yes Vital Signs & Weight: Vital Signs (12 hours) Temp Pulse Ox 11/29/18 11:52 97.5 F L 11/29/18 08:00 97 11/29/18 07:23 98.0 F 11/29/18 03:14 98.0 F Weight Weight 244 lb 6.4 oz Most Recent Monitor Data Heart Rate from ECG 55 NIBP 127/57 NIBP BP-Mean 80 Respiration from ECG 14 SpO2 98 I&O: 11/28/18 11/29/18 11/30/18 06:59 06:59 06:59 Intake Total 2044 2240 Output Total 2800 2050 250 Balance -756 190 -250 Result Diagrams: 11/29/18 09:27 11/29/18 09:27 Additional Labs: Accuchecks 11/29/18 11/29/18 11/29/18 13:03 09:15 03:50 POC Glucose 177 H 268 H 149 H 11/28/18 11/28/18 20:58 17:10 POC Glucose 170 H 188 H Phys Exam - Physical Examination HEENT: PERRLA icterus++ Neck: no JVD, supple Respiratory: no wheezing, no rales Cardiovascular: RRR, no significant murmur Gastrointestinal: soft, non-tender, no distention, positive bowel sounds Musculoskeletal: no edema, pulses present left LE has prosthesis Neurological: non-focal, moves all 4 limbs Psychiatric: normal affect, A&O x 3 Dx/Plan (1) Acute pancreatitis Code(s): K85.90 - ACUTE PANCREATITIS WITHOUT NECROSIS OR INFECTION, UNSP Status: Acute Qualifiers: Pancreatitis type: biliary Comment: likely biliary (2) Acute renal failure (ARF) Status: Acute Comment: improving with IV fluids (3) Elevated LFTs Code(s): R94.5 - ABNORMAL RESULTS OF LIVER FUNCTION STUDIES Status: Acute Comment: Rocephin started 11/27/18 after blood cultures, fever 102 11/27 night, normal WBC (4) Hypoglycemia Code(s): E16.2 - HYPOGLYCEMIA, UNSPECIFIED Status: Resolved (5) Diabetes mellitus type 2 in obese Code(s): E11.69 - TYPE 2 DIABETES MELLITUS WITH OTHER SPECIFIED COMPLICATION; E66.9 - OBESITY, UNSPECIFIED Status: Chronic (6) Fatty liver disease, nonalcoholic Status: Chronic (7) HTN (hypertension) Code(s): I10 - ESSENTIAL (PRIMARY) HYPERTENSION Status: Chronic Qualifiers: Hypertension type: essential hypertension Qualified Code(s): I10 - Essential (primary) hypertension (8) Hyperlipidemia Code(s): E78.5 - HYPERLIPIDEMIA, UNSPECIFIED Status: Chronic Qualifiers: Hyperlipidemia type: unspecified Qualified Code(s): E78.5 - Hyperlipidemia , unspecified Comment: controlled - Plan hemostable -: lft's are trending down, t.bili still around 4 -: continue iv fluids, fat free diet, octreotide per GI adv -: morphine prn, likely lap saira in am? or ercp -: mobilize as tolerated with PT/OT * . Review of Systems - Medications/Allergies Allergies/Adverse Reactions: Allergies Allergy/AdvReac Type Severity Reaction Status Date / Time Sulfa (Sulfonamide Allergy Intermediate Verified 11/26/18 05:20 Antibiotics) Medications: Current Medications Acetaminophen (Tylenol) 650 mg PO Q4H PRN PRN Reason: Headache/Fever/Mild Pain (1-3) Last Admin: 11/27/18 20:04 Dose: 650 mg Dextrose/Water (Dextrose 50%) 25 gm SLOW IVP PRN PRN PRN Reason: Hypoglycemia Last Admin: 11/27/18 09:15 Dose: 25 gm Enoxaparin Sodium (Lovenox) 40 mg SC 0900 [facility]LAH Last Admin: 11/29/18 09:32 Dose: 40 mg Glucagon (Glucagon) 1 mg IM PRN PRN PRN Reason: Hypoglycemia Last Admin: 11/27/18 12:17 Dose: 1 mg Hydralazine HCl (Apresoline) 10 mg SLOW IVP Q4H PRN PRN Reason: BP>180/100 Last Admin: 11/27/18 13:40 Dose: 10 mg Dextrose/Water (D5w) 1,000 mls @ 0 mls/hr IV .Q0M PRN PRN Reason: Hypoglycemia Ceftriaxone Sodium 2 gm/ (Sodium Chloride) 100 mls @ 200 mls/hr IVPB 1500 [facility]LA[facility] Last Admin: 11/28/18 16:16 Dose: 100 mls Dextrose/Sodium Chloride (D5 0.9% Ns) 1,000 mls @ 50 mls/hr IV .Q20H [facility] Last Admin: 11/29/18 09:32 Dose: 1,000 mls Insulin Human Lispro (Humalog) 0 units SC .MILD SLIDING SCALE PRN PRN Reason: Mild Correctional Scale Morphine Sulfate (Morphine) 2 mg SLOW IVP Q2H PRN PRN Reason: Severe Pain (7-10) Stop: 11/30/18 16:16 Octreotide Acetate (Sandostatin) 50 mcg SC Q6HR [facility] Last Admin: 11/29/18 11:38 Dose: 50 mcg Ondansetron HCl (Zofran) 4 mg IVP Q6H PRN PRN Reason: Nausea/Vomiting Stop: 12/01/18 16:16 Ondansetron HCl (Zofran Odt) 4 mg SL Q6H PRN PRN Reason: Nausea/Vomiting Stop: 12/01/18 16:16 Sodium Chloride (Flush - Normal Saline) 10 ml IVF Q12HR [facility] Last Admin: 11/29/18 09:33 Dose: 10 ml Sodium Chloride (Flush - Normal Saline) 10 ml IVF PRN PRN PRN Reason: Saline Flush
[2018-11-29] MEDS: cefTRIAXone\\ROCEPHIN 2 GM in Sodium Chloride 0.9% 100 ML IVPB SCH (15:58)
--- NOTE | 2018-11-29 18:25 | PRG ---
DATE OF SERVICE: 11/29/2018 SUBJECTIVE: Mr. Roa has no abdominal pain. He is tolerating a solid diet. He has no acute complaints. OBJECTIVE: VITAL SIGNS: Temperature 97.5, blood pressure 131/61, pulse 55. GENERAL: He is jaundiced, in no acute distress. Alert and oriented x3. EYES: Have scleral icterus. Oropharynx is clear. LUNGS: Clear to auscultation bilaterally. HEART: Regular rate and rhythm without murmur. ABDOMEN: Soft, nontender, nondistended. Bowel sounds are present. EXTREMITIES: No lower extremity edema. LABORATORY DATA: White blood cell count 8.5, hemoglobin 11.5, platelets 169. INR 1.2. Creatinine 1.56. Bilirubin 4.1, AST 27, ALT 88, alkaline phosphatase 151, albumin 3.2. Viral hepatitis acute panel is negative. IMPRESSION: 1. Acute pancreatitis. This is most likely gallstone in etiology. MRI suggests small stones in the gallbladder. No significant alcohol history. His triglycerides are normal. 2. Abnormal liver function tests. The MRCP does not show biliary dilation or choledocholithiasis. He has fatty liver noted. I suspect he has some chronic underlying liver disease that was decompensated with the acute pancreatitis. Alternatively, this could be side effects related to medication; however, that would not explain the pancreatitis. I doubt he has ongoing biliary obstruction given that he is completely pain free and his liver tests are improving other than the bilirubin. 3. Acute renal failure is improving. 4. Fever has resolved. His blood cultures have remained negative. RECOMMENDATIONS: 1. We will continue to monitor the liver tests. I would expect they should continue to trend down. 2. I believe he will ultimately require cholecystectomy with intraoperative cholangiogram. Timing is being considered based on the trend of the liver tests. Job ID: [id number]
[2018-11-30 05:33] LABS: ALT (SGPT) 69 U/L (8-55); AST (SGOT) 23 U/L (5-34); Albumin 3.2 g/dL (3.4-4.8); Alkaline Phosphatase 169 U/L (40-150); Anion Gap 11 mmol/L (10-20); BUN (Urea Nitrogen) 23 mg/dL (8.4-25.7); Bilirubin, Total 3.1 mg/dL (0.2-1.2); Calc. Creatinine Clearance 65 mL/min (70-130); Calcium 9.2 mg/dL (7.8-10.44); Carbon Dioxide 24 mmol/L (23-31); Chloride 103 mmol/L (98-107); Estimated GFR-MDRD 43; Globulin 3.7 g/dL (2.4-3.5); Glucose 164 mg/dL (83-110); Potassium 3.7 mmol/L (3.5-5.1); Protein, Total 6.9 g/dL (5.8-8.1); Sodium 134 mmol/L (136-145)
[2018-11-30] MEDS: Octreotide Acetate 100 MCG/ML VIAL SC SCH (06:12)
[2018-11-30] MEDS: Dextrose 5 % And 0.9 % NaCl 1,000 ML IV SCH (06:12)
[2018-11-30] MEDS: Enoxaparin Sodium 40 MG/0.4 ML SYRINGE SC SCH (09:15)
--- NOTE | 2018-11-30 09:49 | PRG ---
DATE OF SERVICE: 11/30/2018 SUBJECTIVE: Hugh Roa, this morning, is awake, alert, and responsive. No pain. OBJECTIVE: VITAL SIGNS: Temperature 97, pulse 60, blood pressure 133/79, and saturations are 90% on room air. GENERAL: No pain or discomfort. CHEST: Decreased breath sounds. No wheezing. CARDIAC: Normal S1 and S2. No gallops. ABDOMEN: No masses. LABORATORY DATA: Creatinine is 1.5, not improved. Glucose is better at 155. His ALT has decreased to 69. IMPRESSION: 1. Gallbladder pancreatitis. 2. Azotemia. 3. Diabetes, obesity. PLAN: Disposition as per Surgery. Continue supportive care, PT. We will follow while in the MICU. Job ID: [id number]
--- NOTE | 2018-11-30 14:31 | PDOC.PN ---
- Subjective Encounter Start Date: 11/30/18 Encounter Start Time: 12:00 Subjective: sitting in chair, no abd pain, nausea or vomiting -: had bm yesterday -: tolerating oral diet - Objective Resuscitation Status - Order Detail: 11/26/18 05:48 Resuscitation Status Routine Resuscitation Status: FULL: Full Resuscitation MAR Reviewed: Yes Vital Signs & Weight: Vital Signs (12 hours) Temp Pulse Ox 11/30/18 11:31 97.8 F 11/30/18 08:27 97.6 F 11/30/18 08:00 93 L 11/30/18 04:00 98.8 F Weight Weight 228 lb 12.8 oz Most Recent Monitor Data Heart Rate from ECG 53 NIBP 143/66 NIBP BP-Mean 91 Respiration from ECG 17 SpO2 97 I&O: 11/29/18 11/30/18 12/01/18 06:59 06:59 06:59 Intake Total 2240 2210 Output Total 2050 2250 Balance 190 -40 Result Diagrams: 11/29/18 09:27 11/30/18 04:37 Additional Labs: Accuchecks 11/30/18 11/30/18 11/30/18 12:07 05:57 00:04 POC Glucose 267 H 155 H 208 H 11/29/18 11/29/18 20:09 16:47 POC Glucose 191 H 140 H Phys Exam - Physical Examination HEENT: PERRLA, moist MMs icterus+ Neck: no JVD, supple Respiratory: no wheezing, no rales Cardiovascular: RRR, no significant murmur Gastrointestinal: soft, non-tender, positive bowel sounds Musculoskeletal: no edema, pulses present left leg prosthesis Neurological: non-focal, moves all 4 limbs Psychiatric: normal affect, A&O x 3 Dx/Plan (1) Acute pancreatitis Code(s): K85.90 - ACUTE PANCREATITIS WITHOUT NECROSIS OR INFECTION, UNSP Status: Acute Qualifiers: Pancreatitis type: biliary Comment: likely biliary (2) Acute renal failure (ARF) Status: Acute Comment: improving with IV fluids (3) Elevated LFTs Code(s): R94.5 - ABNORMAL RESULTS OF LIVER FUNCTION STUDIES Status: Acute Comment: Rocephin started 11/27/18 after blood cultures, fever 102 11/27 night, normal WBC (4) Hypoglycemia Code(s): E16.2 - HYPOGLYCEMIA, UNSPECIFIED Status: Resolved (5) Diabetes mellitus type 2 in obese Code(s): E11.69 - TYPE 2 DIABETES MELLITUS WITH OTHER SPECIFIED COMPLICATION; E66.9 - OBESITY, UNSPECIFIED Status: Chronic (6) Fatty liver disease, nonalcoholic Status: Chronic (7) HTN (hypertension) Code(s): I10 - ESSENTIAL (PRIMARY) HYPERTENSION Status: Chronic Qualifiers: Hypertension type: essential hypertension Qualified Code(s): I10 - Essential (primary) hypertension (8) Hyperlipidemia Code(s): E78.5 - HYPERLIPIDEMIA, UNSPECIFIED Status: Chronic Qualifiers: Hyperlipidemia type: unspecified Qualified Code(s): E78.5 - Hyperlipidemia , unspecified Comment: controlled - Plan hemostable -: lft's are receding down, t.bili down to 3 now -: tolerating oral fat free diet, bld csx2 -ve, may dc ceftriaxone in am -: dc octreotide, bradycardia with pauses likely sec to octreotide -: lap saira before discharge, gentle iv fluids * . Review of Systems - Medications/Allergies Allergies/Adverse Reactions: Allergies Allergy/AdvReac Type Severity Reaction Status Date / Time Sulfa (Sulfonamide Allergy Intermediate Verified 11/26/18 05:20 Antibiotics) Medications: Current Medications Acetaminophen (Tylenol) 650 mg PO Q4H PRN PRN Reason: Headache/Fever/Mild Pain (1-3) Last Admin: 11/27/18 20:04 Dose: 650 mg Dextrose/Water (Dextrose 50%) 25 gm SLOW IVP PRN PRN PRN Reason: Hypoglycemia Last Admin: 11/27/18 09:15 Dose: 25 gm Enoxaparin Sodium (Lovenox) 40 mg SC 0900 [facility]LA[facility] Last Admin: 11/30/18 09:15 Dose: 40 mg Glucagon (Glucagon) 1 mg IM PRN PRN PRN Reason: Hypoglycemia Last Admin: 11/27/18 12:17 Dose: 1 mg Hydralazine HCl (Apresoline) 10 mg SLOW IVP Q4H PRN PRN Reason: BP>180/100 Last Admin: 11/27/18 13:40 Dose: 10 mg Dextrose/Water (D5w) 1,000 mls @ 0 mls/hr IV .Q0M PRN PRN Reason: Hypoglycemia Ceftriaxone Sodium 2 gm/ (Sodium Chloride) 100 mls @ 200 mls/hr IVPB 1500 [facility] Last Admin: 11/29/18 15:58 Dose: 100 mls Dextrose/Sodium Chloride (D5 0.9% Ns) 1,000 mls @ 50 mls/hr IV .Q20H [facility] Last Admin: 11/30/18 06:12 Dose: 1,000 mls Insulin Human Lispro (Humalog) 0 units SC .MILD SLIDING SCALE PRN PRN Reason: Mild Correctional Scale Morphine Sulfate (Morphine) 2 mg SLOW IVP Q2H PRN PRN Reason: Severe Pain (7-10) Stop: 11/30/18 16:16 Ondansetron HCl (Zofran) 4 mg IVP Q6H PRN PRN Reason: Nausea/Vomiting Stop: 12/01/18 16:16 Ondansetron HCl (Zofran Odt) 4 mg SL Q6H PRN PRN Reason: Nausea/Vomiting Stop: 12/01/18 16:16 Sodium Chloride (Flush - Normal Saline) 10 ml IVF Q12HR [facility] Last Admin: 11/30/18 09:16 Dose: 10 ml Sodium Chloride (Flush - Normal Saline) 10 ml IVF PRN PRN PRN Reason: Saline Flush
[2018-11-30] MEDS: cefTRIAXone\\ROCEPHIN 2 GM in Sodium Chloride 0.9% 100 ML IVPB SCH (15:07)
--- NOTE | 2018-11-30 15:28 | PRG ---
DATE OF SERVICE: 11/30/2018 SUBJECTIVE: Mr. Roa has no abdominal pain. No nausea, vomiting, diarrhea, constipation. Overall, he feels fine. He has been walking with physical therapy around the unit. OBJECTIVE: VITAL SIGNS: Blood pressure 143/66, pulse 53, temperature 97.8. GENERAL: He is in no acute distress, jaundiced. Alert and oriented x3. LUNGS: Clear to auscultation bilaterally. HEART: Regular rate and rhythm without murmur. ABDOMEN: Soft, nontender, nondistended. Bowel sounds present. EXTREMITIES: No lower extremity edema. LABORATORY DATA: Creatinine is 1.59, bilirubin 3.1, AST 23, ALT 69, alkaline phosphatase 169, albumin 3.2. IMPRESSION: 1. Acute pancreatitis. This is likely gallstone pancreatitis. MRI shows evidence of small stones in the gallbladder. 2. Abnormal liver function tests. I think he likely has significant underlying chronic liver disease secondary to fatty liver. I think he had decompensation with this along with the acute pancreatitis. I think it is less likely that he has a retained gallstone in the bile duct. The MRCP showed no evidence of choledocholithiasis. He has no abdominal pain. His bilirubin is finally trending down today. His transaminases have improved. His alkaline phosphatase, however, has gone from normal to slightly increased now. 3. Diabetes mellitus. 4. He did spike a fever few nights ago, but this has resolved. His white blood cell count has remained normal. He has been on ceftriaxone. Blood cultures are negative now for 3 days and they were drawn prior to initiation of antibiotics. He will likely stop the antibiotics soon. 5. Acute renal failure. His creatinine has been trending down, however, remained stable today. RECOMMENDATIONS: 1. I would recommend cholecystectomy to help prevent risk for recurrent acute pancreatitis. He has no history of significant alcohol use. His triglycerides are normal. 2. Check iron saturation and mitochondrial antibody and smooth muscle antibody and alpha-1 antitrypsin level. 3. Consider cholecystectomy after the liver tests improve further. Job ID: [id number]
[2018-11-30 16:15] LABS: Iron 28 ug/dL (65-175); Iron Binding Capacity, Total 253 mcg/dL (261-462)
[2018-12-01] MEDS: Dextrose 5 % And 0.9 % NaCl 1,000 ML IV SCH ×2 (03:35→23:50)
[2018-12-01 06:02] LABS: ALT (SGPT) 55 U/L (8-55); AST (SGOT) 26 U/L (5-34); Alkaline Phosphatase 201 U/L (40-150); Anion Gap 12 mmol/L (10-20); BUN (Urea Nitrogen) 23 mg/dL (8.4-25.7); Bilirubin, Total 2.1 mg/dL (0.2-1.2); Calc. Creatinine Clearance 69 mL/min (70-130); Carbon Dioxide 24 mmol/L (23-31); Chloride 105 mmol/L (98-107); Estimated GFR-MDRD 48; Globulin 3.5 g/dL (2.4-3.5); Glucose 175 mg/dL (83-110); Potassium 3.8 mmol/L (3.5-5.1); Protein, Total 6.5 g/dL (5.8-8.1); Sodium 137 mmol/L (136-145)
[2018-12-01] MEDS: Enoxaparin Sodium 40 MG/0.4 ML SYRINGE SC SCH (08:57)
--- NOTE | 2018-12-01 10:43 | PRG ---
DATE OF SERVICE: 12/01/2018 SUBJECTIVE: Hugh Roa is a 73-year-old gentleman, who is doing better, less shortness of breath, less cough, less wheezing. His bilirubin is down to 2.1, it was 3.1 yesterday. He had a liver function, which is much improved back to baseline. Creatinine is 1.47, better. OBJECTIVE: VITAL SIGNS: Blood pressure 156/70, sats are 96% on room air, pulse 80, and respiratory rate 18. CHEST: No wheezing. CARDIAC: Normal S1 and S2. No gallops. ABDOMEN: No masses. ASSESSMENT: 1. Pancreatitis. 2. Abnormal liver function, much improved. 3. Cholecystitis. PLAN: Disposition as per GI. Pulmonary will follow while in the MICU. Job ID: [id number]
--- NOTE | 2018-12-01 14:32 | PDOC.PN ---
- Subjective Encounter Start Date: 12/01/18 Encounter Start Time: 14:30 Subjective: Admitted due to severe abdominal pain. Found to have pancreatitis. -: Improved. Has been having bradycardia with long pauses especially at nights -: Cholecystectomy is contemplated tomorrow - Objective Resuscitation Status - Order Detail: 11/26/18 05:48 Resuscitation Status Routine Resuscitation Status: FULL: Full Resuscitation Vital Signs & Weight: Vital Signs (12 hours) Temp 12/01/18 10:31 98.5 F 12/01/18 07:17 97.8 F 12/01/18 03:44 97.8 F Weight Weight 234 lb 11.2 oz Most Recent Monitor Data Heart Rate from ECG 46 NIBP 133/46 NIBP BP-Mean 75 Respiration from ECG 13 SpO2 100 I&O: 11/30/18 12/01/18 12/02/18 06:59 06:59 06:59 Intake Total 2210 1780 Output Total 2250 1000 Balance -40 780 Result Diagrams: 11/29/18 09:27 12/01/18 05:30 Additional Labs: Accuchecks 12/01/18 12/01/18 12/01/18 10:08 05:24 01:16 POC Glucose 235 H 188 H 232 H 11/30/18 11/30/18 20:42 16:05 POC Glucose 270 H 162 H Phys Exam - Physical Examination Constitutional: NAD HEENT: PERRLA, moist MMs Neck: no JVD, supple Respiratory: no wheezing, no rhonchi, clear to auscultation bilateral Cardiovascular: RRR Gastrointestinal: soft, non-tender, no distention, positive bowel sounds Musculoskeletal: no edema, pulses present Left BKA noted Neurological: non-focal, moves all 4 limbs Psychiatric: normal affect, A&O x 3 Dx/Plan (1) Bradycardia Code(s): R00.1 - BRADYCARDIA, UNSPECIFIED Status: Acute Comment: Etiology unclear. Not on any rate control medicaation. ? Related to Octreotide. Heart rate down to 30's at nights. Currently off octreotide (2) Acute pancreatitis Code(s): K85.90 - ACUTE PANCREATITIS WITHOUT NECROSIS OR INFECTION, UNSP Status: Acute Qualifiers: Pancreatitis type: biliary Comment: likely biliary (3) Acute renal failure (ARF) Status: Acute Comment: improving with IV fluids (4) Elevated LFTs Code(s): R94.5 - ABNORMAL RESULTS OF LIVER FUNCTION STUDIES Status: Acute Comment: Rocephin started 11/27/18 after blood cultures, fever 102 11/27 night, normal WBC (5) Diabetes mellitus type 2 in obese Code(s): E11.69 - TYPE 2 DIABETES MELLITUS WITH OTHER SPECIFIED COMPLICATION; E66.9 - OBESITY, UNSPECIFIED Status: Chronic (6) Fatty liver disease, nonalcoholic Status: Chronic (7) HTN (hypertension) Code(s): I10 - ESSENTIAL (PRIMARY) HYPERTENSION Status: Chronic Qualifiers: Hypertension type: essential hypertension Qualified Code(s): I10 - Essential (primary) hypertension (8) Hyperlipidemia Code(s): E78.5 - HYPERLIPIDEMIA, UNSPECIFIED Status: Chronic Qualifiers: Hyperlipidemia type: unspecified Qualified Code(s): E78.5 - Hyperlipidemia , unspecified Comment: controlled (9) Hypoglycemia Code(s): E16.2 - HYPOGLYCEMIA, UNSPECIFIED Status: Resolved - Plan Continue current treatment. -: Get ECG. Consult cardiology. -: Possible cholecystectomy tomorrow * .
[2018-12-01] MEDS ORDERED: Lidocaine 1% PF 5 ML VIAL ONE (14:51)
[2018-12-01] MEDS ORDERED: Ondansetron PF 4 MG/2 ML Vial ONE (14:51)
[2018-12-01] MEDS ORDERED: PROPOFOL 200 MG/20 ML VIAL ONE (14:51)
[2018-12-01] MEDS ORDERED: Rocuronium Bromide 10 MG/ML (10ML VIAL) ONE (14:51)
[2018-12-01] MEDS ORDERED: Glycopyrrolate 0.2 MG/ML 5 ML SYRINGE ONE (14:51)
[2018-12-01] MEDS: cefTRIAXone\\ROCEPHIN 2 GM in Sodium Chloride 0.9% 100 ML IVPB SCH (15:43)
--- NOTE | 2018-12-01 15:54 | CON ---
DATE OF CONSULTATION: HISTORY OF PRESENT ILLNESS: The patient is a 73-year-old gentleman, who presented with abdominal discomfort and was noted to have a slow heart rate. The patient states that nearly 40 years ago, he had difficulty with syncope. Apparently, had adjustment of his blood pressure medication. He has had no further difficulty. He is followed by a optic fibre drawer in [place]. The patient has no known history of coronary artery disease. The patient states that he underwent a chemical stress test that was unremarkable. The patient denies any lightheadedness or dizziness. The patient was then admitted with abdominal discomfort. He was noted to have a slow heart rate. PAST MEDICAL HISTORY: Significant for, 1. Diabetes mellitus. 2. Hypertension. 3. Dyslipidemia. 4. GE reflux. PAST SURGICAL HISTORY: He has had cataract surgery, leg amputation, and knee surgeries. ALLERGIES: HE IS ALLERGIC TO SULFA DRUGS. MEDICATIONS: On admission, 1. Amlodipine 5 daily. 2. Metformin 1000 b.i.d. 3. Zocor 40 at bedtime. 4. Flomax 0.4 daily. 5. Glipizide 5 daily. 6. He takes fenofibrate 48 mg daily. 7. Actos 30 daily. FAMILY HISTORY: Positive family history of heart disease. Father had myocardial infarction. REVIEW OF SYSTEMS: Ten-point system otherwise unremarkable. PHYSICAL EXAMINATION: GENERAL: This is a well-developed gentleman, in no acute distress. VITAL SIGNS: Blood pressure 123/60. NECK: No jugular venous distention. LUNGS: Clear to auscultation. HEART: Regular rate and rhythm. Normal S1 and S2. 1/6 systolic murmur. ABDOMEN: Distended. EXTREMITIES: Status post left BKA. LABORATORY DATA: Sodium 137, potassium 3.8, chloride 105, bicarbonate 24, BUN 23, creatinine 1.4. White blood cell count 8.5, hemoglobin 11.5, hematocrit 34.1, and his platelets were 169. His EKG is pending. Telemetry monitoring revealed normal sinus rhythm with sinus arrhythmia and premature atrial contractions. IMPRESSION: 1. Sinus arrhythmia/premature atrial contractions. 2. Cholelithiasis. 3. Pancreatitis. 4. Diabetes mellitus. 5. Renal insufficiency. 6. Hypertension. 7. Dyslipidemia. This gentleman has been noted on telemetry to have sinus pauses and sinus arrhythmia. The patient is asymptomatic. We will continue to observe this patient with you through his hospitalization. We will check the patient's electrocardiogram. Please call my office. Job ID: [id number]
--- NOTE | 2018-12-01 16:02 | PRG ---
DATE OF SERVICE: 12/01/2018 SUBJECTIVE: I am meeting Mr. Roa for the first time today, covering for Dr. Mckeon over the weekend. Mr. Roa reports he is feeling very well. He has had no abdominal pain, nausea, or vomiting. His bowel function is appropriate. He has been tolerating his diet just fine. He has evidently been having some asymptomatic bradycardia and long pauses, and cardiology workup is in process for this. From what I hear, surgery is tentatively planned for tomorrow for cholecystectomy. OBJECTIVE: VITAL SIGNS: Temperature 98.4, blood pressure 133/46, pulse 46, and 100% oxygen saturation on room air. GENERAL: No acute distress, sitting up in bed comfortably. HEART: Regular, bradycardia. LUNGS: Clear to auscultation bilaterally. ABDOMEN: Soft, nontender to palpation. EXTREMITIES: No peripheral edema. LABORATORY STUDIES: Sodium 137, potassium 3.8, BUN 23, creatinine 1.44, glucose 235. LFTs have all been trending down the past few days. Total bilirubin now down to 2.1. Alkaline phosphatase up slightly to 201, but normal, AST 26 and normal, ALT 55. ASSESSMENT AND PLAN: 1. Acute pancreatitis, likely representing gallstone pancreatitis. MRI showed evidence of small stones in the gallbladder, but none in the bile duct. This is clinically resolved. 2. Abnormal liver function tests. The impression has been that he likely had some decompensation of chronic fatty liver disease secondary to his pancreatitis, but this is now improving. Note the downtrend in LFTs over the past few days. Agree with Dr. Mckeon's recommendation to proceed with cholecystectomy to help reduce risk for recurrent acute pancreatitis. This is evidently potentially planned for tomorrow. Job ID: [id number]
[2018-12-02 06:12] LABS: ALT (SGPT) 71 U/L (8-55); AST (SGOT) 51 U/L (5-34); Albumin 3.1 g/dL (3.4-4.8); Alkaline Phosphatase 226 U/L (40-150); Anion Gap 8 mmol/L (10-20); BUN (Urea Nitrogen) 19 mg/dL (8.4-25.7); Bilirubin, Total 2.1 mg/dL (0.2-1.2); Calc. Creatinine Clearance 74 mL/min (70-130); Calcium 9.4 mg/dL (7.8-10.44); Carbon Dioxide 26 mmol/L (23-31); Chloride 106 mmol/L (98-107); Estimated GFR-MDRD 52; Globulin 3.7 g/dL (2.4-3.5); Glucose 160 mg/dL (83-110); Potassium 3.8 mmol/L (3.5-5.1); Protein, Total 6.8 g/dL (5.8-8.1); Sodium 136 mmol/L (136-145)
[2018-12-02] MEDS ORDERED: cefOXitin 2 GM VIAL ONE (08:30)
[2018-12-02] MEDS ORDERED: Sodium Chloride 0.9% 100 ML ONE (08:30)
[2018-12-02] MEDS ORDERED: Fentanyl 100 MCG/2 ML VIAL ONE (08:59)
[2018-12-02] MEDS ORDERED: Iothalamate Meglumine 60% 50 ML VIAL FS ONE (09:17)
[2018-12-02] MEDS ORDERED: Bupivacaine/Epinephrine 0.25% 30 ML VIAL ONE (09:17)
--- NOTE | 2018-12-02 09:56 | RAD ---
EXAM: INTRAOPERATIVE CHOLANGIOGRAM: EXPOSURE: 7.13 mGy, 21 seconds. FINDINGS: Two intraoperative cholangiograms demonstrate appropriate opacification of a normal caliber intrahepa tic and extrahepatic biliary system. No filling defects. Contrast is noted in the duodenum. IMPRESSION: Intraoperative fluoroscopy as above. Transcribed Date/Time: 12/02/2018 10:03 AM
--- NOTE | 2018-12-02 10:10 | PRG ---
DATE OF SERVICE: 12/02/2018 SUBJECTIVE: Mr. Roa continues to feel well. No abdominal pain, nausea, or vomiting. He has gone down to preop for planned cholecystectomy later today. LFTs are essentially stable from yesterday, slight increase in transaminases. OBJECTIVE: VITAL SIGNS: Temperature 98.4, blood pressure 152/67, pulse 67, and 94% oxygen saturation on room air, GENERAL: No acute distress. HEART: Regular rate and rhythm. LUNGS: Clear to auscultation bilaterally. ABDOMEN: Soft and nontender to palpation. EXTREMITIES: No peripheral edema. LABORATORY STUDIES: Total bilirubin stable at 2.1, AST slightly up to 51, ALT slightly up to 71, alkaline phosphatase 226, creatinine down to 1.34, BUN 19, sodium 136, potassium 3.8, INR is 1.2. ASSESSMENT/PLAN: 1. Acute gallstone pancreatitis, clinically resolved. 2. Abnormal liver function tests. There has been overall down trend in LFTs over the past few days, stable today. Viral hepatitis serologies are negative. MRI showed no choledocholithiasis. He will be going for cholecystectomy later today. Job ID: [id number]
[2018-12-02] MEDS ORDERED: Ondansetron HCl/PF 4 MG/2 ML Vial IVP PRN (10:12)
[2018-12-02] MEDS ORDERED: Promethazine HCl 25 MG/ML VIAL IM PRN (10:12)
[2018-12-02] MEDS ORDERED: Promethazine HCl 25 MG/ML VIAL SLOW IVP PRN (10:12)
[2018-12-02] MEDS ORDERED: Morphine 4 MG/ML VIAL SLOW IVP PRN (11:41)
[2018-12-02] MEDS ORDERED: HYDROcodone/Acetaminophen 7.5/325 mg Tablet PO PRN (11:41)
[2018-12-02] MEDS ORDERED: Morphine 2 MG/ML SYRINGE SLOW IVP PRN (11:44)
--- NOTE | 2018-12-02 12:20 | PRG ---
DATE OF SERVICE: 12/02/2018 SUBJECTIVE: Hugh Roa is a 73-year-old gentleman, status post cholecystectomy, doing quite well. No shortness of breath. No coughing. No wheezing. OBJECTIVE: VITAL SIGNS: His vital signs are stable. Blood pressure is 165/72 , his temperature is 97, o2 sat 95% ra, and respiratory rate 18. CHEST: Decreased breath sounds. No wheezing. CARDIAC: Normal S1 and S2. No gallops. ABDOMEN: No masses. DICTATIONS ENDS HERE Job ID: [id number] MTDD
--- NOTE | 2018-12-02 12:30 | OP ---
DATE OF PROCEDURE: 12/02/2018 PREOPERATIVE DIAGNOSIS: Gallstone pancreatitis. POSTOPERATIVE DIAGNOSIS: Gallstone pancreatitis. PROCEDURE PERFORMED: Laparoscopic cholecystectomy with intraoperative cholangiogram. ANESTHESIA: General. ESTIMATED BLOOD LOSS: Minimal. COMPLICATIONS: None. SPECIMENS: Gallbladder. FINDINGS: Normal cholangiogram. DESCRIPTION OF PROCEDURE: The patient was taken to the operating room and laid supine on the operating room table. After general anesthetic was obtained, the abdomen was shaved, prepped, and draped in a sterile fashion. A straight incision was made above the umbilicus. Cautery was dissected down to and score the fascia. Abdominal cavity was entered bluntly using a Yamilex clamp. Holding stitch of PDS was placed on each side of the fascia. Janette trocar was placed. High-flow pneumoperitoneum was obtained. Upper midline 5-mm port and two right upper quadrant 5-mm port were placed under direct visualization. Gallbladder was retracted from the gallbladder fossa. The peritoneum was opened anteriorly and posteriorly. The critical view triangle was seen showing only the cystic duct and cystic artery branching from medial to lateral and no other branching structures. A clip was placed high on the cystic duct. A small ductotomy was made just proximal to that. A cholangiocatheter was brought in through a stab incision and placed in the cystic duct, which shows contrast flow into the duodenum. Right and left hepatic duct system without obstruction. The cholangiocatheter was removed. So, 2 clips were placed proximally on the cystic duct. Cystic artery was cut using laparoscopic scissors. Cautery was dissected off and the gallbladder was retracted from the gallbladder fossa. Gallbladder was placed in an Endo Catch bag and brought out through the Janette. All port sites were infiltrated using local anesthetic. All ports were removed under camera visualization. Pneumoperitoneum was let down. PDS was used to close the fascial defect below the umbilicus. All incisions were irrigated and closed using 4-0 Monocryl and Dermabond. The patient was sent to Recovery in stable condition. All instrument counts, needle counts, and lap counts were correct. Job ID: [id number]
--- NOTE | 2018-12-02 12:48 | PDOC.PN ---
- Subjective Encounter Start Date: 12/02/18 Encounter Start Time: 12:47 Subjective: Complaining right upper quadrant pain. -: Had Lap saira earlier today. - Objective Resuscitation Status - Order Detail: 11/26/18 05:48 Resuscitation Status Routine Resuscitation Status: FULL: Full Resuscitation Vital Signs & Weight: Vital Signs (12 hours) Temp 12/02/18 11:04 97.6 F 12/02/18 07:05 98.4 F 12/02/18 03:47 98.6 F Weight Weight 236 lb Most Recent Monitor Data Heart Rate from ECG 105 NIBP 165/72 NIBP BP-Mean 103 Respiration from ECG 17 SpO2 94 I&O: 12/01/18 12/02/18 12/03/18 06:59 06:59 06:59 Intake Total 1780 1200 Output Total 1000 2200 100 Balance 780 -1000 -100 Result Diagrams: 11/29/18 09:27 12/02/18 05:34 Additional Labs: Accuchecks 12/02/18 12/02/18 12/02/18 12:07 08:01 04:04 POC Glucose 153 H 150 H 144 H 12/01/18 12/01/18 12/01/18 23:59 19:54 16:18 POC Glucose 179 H 227 H 204 H 12/01/18 10:08 POC Glucose 235 H Phys Exam - Physical Examination Constitutional: NAD HEENT: PERRLA, moist MMs Neck: no JVD, supple Respiratory: no wheezing, no rhonchi, clear to auscultation bilateral Cardiovascular: RRR Rehular rhyth,m with few ectopics. Gastrointestinal: soft, no distention, positive bowel sounds Musculoskeletal: no edema, pulses present Left BKA noted Neurological: non-focal, moves all 4 limbs Psychiatric: A&O x 3 Dx/Plan (1) Bradycardia Code(s): R00.1 - BRADYCARDIA, UNSPECIFIED Status: Acute Comment: Most likely related to Octreotide. ETELVINA is a concern. improving. (2) Acute pancreatitis Code(s): K85.90 - ACUTE PANCREATITIS WITHOUT NECROSIS OR INFECTION, UNSP Status: Acute Qualifiers: Pancreatitis type: biliary Comment: likely biliary (3) Acute renal failure (ARF) Status: Acute Comment: improving with IV fluids (4) Elevated LFTs Code(s): R94.5 - ABNORMAL RESULTS OF LIVER FUNCTION STUDIES Status: Acute Comment: Rocephin started 11/27/18 after blood cultures, fever 102 11/27 night, normal WBC (5) Diabetes mellitus type 2 in obese Code(s): E11.69 - TYPE 2 DIABETES MELLITUS WITH OTHER SPECIFIED COMPLICATION; E66.9 - OBESITY, UNSPECIFIED Status: Chronic (6) Fatty liver disease, nonalcoholic Status: Chronic (7) HTN (hypertension) Code(s): I10 - ESSENTIAL (PRIMARY) HYPERTENSION Status: Chronic Qualifiers: Hypertension type: essential hypertension Qualified Code(s): I10 - Essential (primary) hypertension (8) Hyperlipidemia Code(s): E78.5 - HYPERLIPIDEMIA, UNSPECIFIED Status: Chronic Qualifiers: Hyperlipidemia type: unspecified Qualified Code(s): E78.5 - Hyperlipidemia , unspecified Comment: controlled (9) Hypoglycemia Code(s): E16.2 - HYPOGLYCEMIA, UNSPECIFIED Status: Resolved (10) Cholelithiases Code(s): K80.20 - CALCULUS OF GALLBLADDER W/O CHOLECYSTITIS W/O OBSTRUCTION Status: Acute Comment: S/p cholecystectomy - Plan Continue telemetry. -: Continue antibiotic. -: Diet as tolerated. -: DC IVF. -: Analgesic as needed. * .
[2018-12-02] MEDS: cefTRIAXone\\ROCEPHIN 2 GM in Sodium Chloride 0.9% 100 ML IVPB SCH (14:38)
[2018-12-02] MEDS: Acetaminophen 325 MG TAB PO PRN (19:58)
[2018-12-03 04:26] LABS: #Eosinphils 0.2 thou/uL (0.0-0.7); #Lymphocytes 1.4 thou/uL (1.20-3.40); #Monocytes 0.9 thou/uL (0.11-0.59); #Neutrophils 7.6 thou/uL (1.40-6.50); %Basophils 0.4 % (0.0-1.0); %Eosinophils 1.9 % (0.0-10.0); %Lymphocytes 14.2 % (21.0-51.0); %Monocytes 8.4 % (0.0-10.0); %Neutrophils 75.1 % (42.0-75.0); Hemoglobin 9.6 g/dL (14.0-18.0); Mean Corpuscular HGB CONC 32.9 g/dL (32.0-36.0); Mean Corpuscular Hemoglobin 32.1 pg (27.0-31.0); Mean Corpuscular Volume 97.7 fL (78.0-98.0); Mean Platelet Volume 9.4 fL (7.4-10.4); Platelet Count 204 thou/uL (130-400); RBC Distribution Width 12.3 % (11.5-14.5); White Blood Cell (WBC) Count 10.1 thou/uL (4.8-10.8)
[2018-12-03 04:45] LABS: ALT (SGPT) 66 U/L (8-55); AST (SGOT) 47 U/L (5-34); Albumin 2.9 g/dL (3.4-4.8); Alkaline Phosphatase 197 U/L (40-150); Anion Gap 10 mmol/L (10-20); BUN (Urea Nitrogen) 19 mg/dL (8.4-25.7); Bilirubin, Total 2.3 mg/dL (0.2-1.2); Calc. Creatinine Clearance 67 mL/min (70-130); Calcium 8.9 mg/dL (7.8-10.44); Carbon Dioxide 26 mmol/L (23-31); Chloride 103 mmol/L (98-107); Estimated GFR-MDRD 46; Globulin 3.5 g/dL (2.4-3.5); Glucose 131 mg/dL (83-110); Potassium 3.8 mmol/L (3.5-5.1); Protein, Total 6.4 g/dL (5.8-8.1); Sodium 135 mmol/L (136-145)
--- NOTE | 2018-12-03 08:59 | PDOC.GSPN ---
Surgery Progress Note: Subj - Subjective Patient reports: pain well controlled Surgery Progress Note: Obj - Vital signs Vital signs: Vital Signs - Most Recent Temp Pulse Resp BP Pulse Ox 98.1 F 71 18 150/70 H 94 L 12/03/18 07:33 12/02/18 13:23 11/26/18 05:10 12/02/18 13:23 12/03/18 07:42 - Physical Exam General: no distress Abdomen: soft, nondistended, appropriately tender Wound: healing well Surgery Progress Note: Results - Labs Result Diagrams: 12/03/18 04:12 12/03/18 04:12 Lab results: Laboratory Results - last 24 hr 12/03/18 12/03/18 12/03/18 00:21 04:12 04:12 WBC 10.1 RBC 3.00 L Hgb 9.6 L Hct 29.3 L MCV 97.7 MCH 32.1 H MCHC 32.9 RDW 12.3 Plt Count 204 MPV 9.4 Neutrophils % 75.1 H Lymphocytes % 14.2 L Monocytes % 8.4 Eosinophils % 1.9 Basophils % 0.4 Neutrophils # 7.6 H Lymphocytes # 1.4 Monocytes # 0.9 H Eosinophils # 0.2 Basophils # 0.0 Sodium 135 L Potassium 3.8 Chloride 103 Carbon Dioxide 26 Anion Gap 10 BUN 19 Creatinine 1.49 H Estimated GFR (MDRD) 46 Glucose 131 H POC Glucose 136 H Calcium 8.9 Total Bilirubin 2.3 H AST 47 H ALT 66 H Alkaline Phosphatase 197 H Serum Total Protein 6.4 Albumin 2.9 L Globulin 3.5 Albumin/Globulin Ratio 0.8 L 12/03/18 12/03/18 04:16 08:01 WBC RBC Hgb Hct MCV MCH MCHC RDW Plt Count MPV Neutrophils % Lymphocytes % Monocytes % Eosinophils % Basophils % Neutrophils # Lymphocytes # Monocytes # Eosinophils # Basophils # Sodium Potassium Chloride Carbon Dioxide Anion Gap BUN Creatinine Estimated GFR (MDRD) Glucose POC Glucose 122 H 162 H Calcium Total Bilirubin AST ALT Alkaline Phosphatase Serum Total Protein Albumin Globulin Albumin/Globulin Ratio Surgery Progress Note: A/P - Problem (1) Cholelithiases Current Visit: Yes Code(s): K80.20 - CALCULUS OF GALLBLADDER W/O CHOLECYSTITIS W/O OBSTRUCTION Status: Acute - Plan Plan: POD 1 -Doing well. cholangiogram was normal. -home today if clear by medicine. -f/u me 2 wks -gave tramadol rx to family
--- NOTE | 2018-12-03 09:46 | PDOC.PN ---
- Subjective Encounter Start Date: 12/03/18 Encounter Start Time: 09:43 Subjective: i think i'm going home - Objective Resuscitation Status - Order Detail: 11/26/18 05:48 Resuscitation Status Routine Resuscitation Status: FULL: Full Resuscitation MAR Reviewed: Yes Vital Signs & Weight: Vital Signs (12 hours) Temp Pulse Ox 12/03/18 07:42 94 L 12/03/18 07:33 98.1 F 12/03/18 04:00 98.8 F 12/03/18 00:46 99.6 F 12/02/18 22:07 99.1 F Weight Weight 233 lb 1.6 oz Most Recent Monitor Data Heart Rate from ECG 63 NIBP 150/65 NIBP BP-Mean 93 Respiration from ECG 24 SpO2 96 I&O: 12/02/18 12/03/18 12/04/18 06:59 06:59 06:59 Intake Total 1200 1380 Output Total 2200 1690 Balance -1000 -310 Result Diagrams: 12/03/18 04:12 12/03/18 04:12 Additional Labs: Accuchecks 12/03/18 12/03/18 12/03/18 08:01 04:16 00:21 POC Glucose 162 H 122 H 136 H 12/02/18 12/02/18 12/02/18 20:01 16:04 12:07 POC Glucose 157 H 177 H 153 H Phys Exam - Physical Examination Neck: no JVD Respiratory: clear to auscultation bilateral Cardiovascular: RRR, no significant murmur Gastrointestinal: soft, non-tender, positive bowel sounds Musculoskeletal: no edema Dx/Plan (1) Acute pancreatitis Code(s): K85.90 - ACUTE PANCREATITIS WITHOUT NECROSIS OR INFECTION, UNSP Status: Acute Qualifiers: Pancreatitis type: biliary Comment: likely biliary (2) Acute renal failure (ARF) Status: Acute Qualifiers: Acute renal failure type: unspecified Qualified Code(s): N17.9 - Acute kidney failure, unspecified Comment: improving with IV fluids (3) Bradycardia Code(s): R00.1 - BRADYCARDIA, UNSPECIFIED Status: Acute Comment: Most likely related to Octreotide. ETELVINA is a concern. improving. (4) Cholelithiases Code(s): K80.20 - CALCULUS OF GALLBLADDER W/O CHOLECYSTITIS W/O OBSTRUCTION Status: Acute Qualifiers: Cholelithiasis location: gallbladder Cholecystitis acuity: acute Biliary obstruction: without biliary obstruction Comment: S/p cholecystectomy (5) Elevated LFTs Code(s): R94.5 - ABNORMAL RESULTS OF LIVER FUNCTION STUDIES Status: Acute Comment: Rocephin started 11/27/18 after blood cultures, fever 102 11/27 night, normal WBC (6) Diabetes mellitus type 2 in obese Code(s): E11.69 - TYPE 2 DIABETES MELLITUS WITH OTHER SPECIFIED COMPLICATION; E66.9 - OBESITY, UNSPECIFIED Status: Chronic (7) Fatty liver disease, nonalcoholic Status: Chronic (8) HTN (hypertension) Code(s): I10 - ESSENTIAL (PRIMARY) HYPERTENSION Status: Chronic Qualifiers: Hypertension type: essential hypertension Qualified Code(s): I10 - Essential (primary) hypertension (9) Hyperlipidemia Code(s): E78.5 - HYPERLIPIDEMIA, UNSPECIFIED Status: Chronic Qualifiers: Hyperlipidemia type: unspecified Qualified Code(s): E78.5 - Hyperlipidemia , unspecified Comment: controlled - Plan post cholecystectomy, doing well. discuss plans with Dr Guy * .
--- NOTE | 2018-12-03 09:48 | PRG ---
DATE OF SERVICE: 12/03/2018 SUBJECTIVE: This morning, he is awake, alert, responsive, better, status post cholecystectomy. OBJECTIVE: VITAL SIGNS: Sats are 90% on room air, temperature 98, blood pressure 156/80. GENERAL: No distress. CHEST: Clear. CARDIAC: Normal S1 and S2. No gallops. ABDOMEN: Soft. LABORATORY DATA: Creatinine 1.49. Liver functions improved. Bilirubin is down . ASSESSMENT: 1. Status post pancreatitis. 2. Status post cholecystectomy. 3. Abnormal liver function. 4. Mild azotemia. DISPOSITION: As per Surgery and GI. Pulmonary will follow at a distance. Job ID: [id number]
[2018-12-03 11:17] VITALS: TEMP 98
--- NOTE | 2018-12-03 11:54 | DIS ---
DATE OF ADMISSION: 11/26/2018 DATE OF DISCHARGE: 12/03/2018 DISPOSITION: Discharged home. PRIMARY CARE PROVIDER: Julieta Wise. FINAL DIAGNOSES: Acute pancreatitis, cholelithiasis, acute renal failure, bradycardia, diabetes mellitus type 2, fatty liver, hypertension, and dyslipidemia. DISCHARGE MEDICATIONS: 1. Ondansetron 4 mg p.o. q.4 hours p.r.n. nausea. 2. Tramadol 50 mg p.o. q.4 hours p.r.n. pain. 3. Amlodipine 5 mg a day. 4. Metformin 2000 mg a day. 5. Omeprazole 20 mg a day. 6. Actos 30 mg a day. 7. Losartan 100 mg a day. 8. Zocor 40 mg a day. 9. Flomax 0.4 mg a day. 10. Fenofibrate 48 mg a day. 11. Glipizide 10 mg twice a day. ALLERGIES: SULFONAMIDES. DIET: Diabetic. CODE STATUS: Full. CONSULTATIONS DURING HOSPITAL STAY: Dr. Sukumar Mckeon, Gastroenterology; Dr. Micheal Aburto, Pulmonology; Dr. Vineet Bell, Cardiology; Dr. Connor Guy, General Surgery. PROCEDURES: 12/02/2018, laparoscopic cholecystectomy with intraoperative cholangiogram, pending gallbladder pathology. HOSPITAL COURSE: The patient was admitted to [facility] through [facility] with abdominal pain, found to have acute pancreatitis, elevated blood pressure, etc. 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 The patient was placed n.p.o. Consultations obtained. The patient was followed during his hospital course eventually. His initial laboratory; white count 10.7, hemoglobin 12.3, platelet count 146,000. Final white count 10.1, hemoglobin 9.6, platelet count 204,000. Admitting lipase 4421. Chemistries revealed increased creatinine of 2.06, BUN of 34. Liver function tests, bilirubin was elevated. At time of discharge, creatinine was 1.49 and BUN 19, blood sugars in the 100 to 200 range. Bilirubin had come down to 2.3, AST 47, ALT 66. The patient is doing well and desirous of going home. Prescriptions have been written. During his hospital stay, he did have some bradycardia that was seen by Dr. Vineet Bell. The patient has an out of town school guard, Dr. Bell, so no contraindication being discharged on current medications. He is to follow up with Dr. Guy per his recommendations, follow up with his primary care provider in one week. discussed MRI of abdomen with Dr Mckeon. Results suggested pyloric mass, Dr Jaren KRAUSE Job ID: [id number] MTDD
[2018-12-03] MEDS ORDERED: Amlodipine 5 MG TAB PO SCH (12:00)
[2018-12-03 12:31] VITALS: BP 183/112
[2018-12-03 12:58] LABS: EliA Vaculitis New Method **** NEW METHOD ****; Mitochondrial Ab 0.7 U/mL (<4 Negative)
--- NOTE | 2018-12-03 13:40 | PRG ---
DATE OF SERVICE: 12/03/2018 SUBJECTIVE: Mr. Roa has no abdominal pain other than some soreness around the surgical sites. No nausea or vomiting. No other complaints. OBJECTIVE: VITAL SIGNS: Pulse 71, blood pressure 150/75, temperature 98.0. He did have a fever last night to 102.3, but no other fevers other than that one. GENERAL: He is in no acute distress. He is alert and oriented x3. HEENT: His eyes have slight scleral icterus. Oropharynx is clear without lesions. No cervical or supraclavicular lymphadenopathy. LUNGS: Clear to auscultation bilaterally. HEART: Regular rate and rhythm without murmur. ABDOMEN: Soft, nontender, and nondistended. Bowel sounds are present. EXTREMITIES: Trace lower extremity of the right leg. LABORATORY DATA: Creatinine 1.49. Bilirubin 2.3, AST 47, ALT 66, alkaline phosphatase 197, albumin 2.9, alpha fetoprotein 2.0. White blood cell count 10.1, hemoglobin 9.6, and platelets 204. IMPRESSION: 1. Gallstone pancreatitis, clinically resolved. He is status post cholecystectomy yesterday. 2. Acute renal failure. His creatinine is improved from 2.06 to 1.49. 3. Abnormal liver function test. He appears to have underlying chronic fatty liver disease that decompensated with the acute pancreatitis, and we will continue to follow trend of his liver tests. On discussion with Dr. Guy, his liver did not appear overtly cirrhotic at the time of cholecystectomy. It did appear fatty. 4. Abnormal MRI showing thickening of the stomach antrum, he had upper endoscopy at [facility] in [place] in August 2018. Again that procedure report has been requested. Given that has been a few months ago now, I think followup upper endoscopy is indicated. I suspect that the abnormality in the antrum was related to the acute pancreatitis. Plan will be to repeat upper endoscopy in the office in a week or two to allow further time for the peripancreatic inflammation to resolve. RECOMMENDATIONS: 1. Follow up in GI clinic in 2 weeks. Follow trend of the liver function tests and schedule outpatient upper endoscopy to follow up on the questionable gastric antrum mass. 2. Again, the procedure reports from [facility] have been requested. 3. upper endoscopy will also evaluate for sequelae of portal hypertension. 4. Discharge is anticipated for today. We will await additional labs that have been ordered to further evaluate the liver function abnormalities including the mitochondrial antibody and smooth muscle antibody. Job ID: [id number] [facility]
[2018-12-03] MEDS ORDERED: Atorvastatin Calcium 10 MG TAB PO SCH (21:00)
[2018-12-03] MEDS ORDERED: Tamsulosin HCl 0.4 MG CAP PO SCH (21:00)
== END 2018-12-03 12:59 | disposition home or self-care (01) | DRG 418 ==
LOC: ERS 03:39 → IMCU/EMU 04:12
PROVIDERS: ADMIT Hospitalist; ATTEND Hospitalist
PROC: 02HV33Z Insertion of Infusion Device into Superior Vena Cava, Percutaneous Approach (ICD-10-PCS; 2018-11-27)
PROC: B548ZZA Ultrasonography of Superior Vena Cava, Guidance (ICD-10-PCS; 2018-11-27)
PROC: 0FT44ZZ Resection of Gallbladder, Percutaneous Endoscopic Approach (ICD-10-PCS; principal; 2018-12-02)
PROC: BF10YZZ Fluoroscopy of Bile Ducts using Other Contrast (ICD-10-PCS; 2018-12-02)
DX: K85.10 Biliary acute pancreatitis without necrosis or infection (principal); N17.9 Acute kidney failure, unspecified; K80.10 Calculus of gallbladder with chronic cholecystitis without obstruction; I10 Essential (primary) hypertension; E78.5 Hyperlipidemia, unspecified; I16.0 Hypertensive urgency; E66.01 Morbid (severe) obesity due to excess calories; K76.0 Fatty (change of) liver, not elsewhere classified; K21.9 Gastro-esophageal reflux disease without esophagitis; E11.69 Type 2 diabetes mellitus with other specified complication; T38.3X5A Adverse effect of insulin and oral hypoglycemic [antidiabetic] drugs, initial encounter; E11.649 Type 2 diabetes mellitus with hypoglycemia without coma; Z96.651 Presence of right artificial knee joint; R50.9 Fever, unspecified; E11.65 Type 2 diabetes mellitus with hyperglycemia; R00.1 Bradycardia, unspecified; Z89.512 Acquired absence of left leg below knee; Z88.2 Allergy status to sulfonamides; Z72.0 Tobacco use; Z79.899 Other long term (current) drug therapy; Z79.84 Long term (current) use of oral hypoglycemic drugs; Z68.30 Body mass index [BMI] 30.0-30.9, adult
CPT/HCPCS: 36415; 36416; 47532; 71045; 74181; 76000; 80048; 80053; 80074; 80076; 82103; 82105; 82150; 83516; 83540; 83550; 83615; 83690; 84478; 85025; 85610; 87040; 87086; 88304; 93005; 93010; 96360; A4217; J0360; J0694; J0696; J1610; J1650; J2001; J2270; J2354; J2405; J2704; J3010; J3490; Q9961